=== PATIENT | female | born 1990 | race Caucasian/White ===

== ENCOUNTER 2017-05-19 12:28 | Emergency (ER) | payer MEDICAID ==
[2017-05-19 15:40] VITALS: BP 124/74
== END 2017-05-19 15:52 | disposition home or self-care (01) ==
LOC: ED 12:28
DX: M43.6 Torticollis (principal)
CPT/HCPCS: J1885; J3360

== ENCOUNTER 2017-09-13 21:36 | Emergency (ER) | payer MEDICAID ==
[2017-09-13 21:47] VITALS: BP 140/81
[2017-09-13 22:47] LABS: microscopic required? NO
[2017-09-13 23:19] LABS: BASOPHIL % 0.4 % (0-2); PLATELET COUNT 259 x10^3mcL (130-400)
[2017-09-13 23:37] LABS: urine erythrocyte NEGATIVE (NEGATIVE)
== END 2017-09-14 01:04 | disposition home or self-care (01) ==
LOC: ED 21:36
PROVIDERS: Emergency Medicine
DX: O26.891 Other specified pregnancy related conditions, first trimester (principal); Z3A.09 9 weeks gestation of pregnancy
CPT/HCPCS: 36415